=== PATIENT | male | born 1965 | race Caucasian/White ===

== ENCOUNTER 2023-03-27 16:13 | Emergency (ER) | payer BC ==
[2023-03-27] MEDS ORDERED: Sodium Chloride 0.9% 10 ML Syringe FLUSH PRN (16:45)
[2023-03-27 17:41] LABS: INR 1.07; PROTHROMBIN TIME 11.4 SECONDS (9.7-12.0)
[2023-03-27 17:42] LABS: PTT,PARTIAL THROMBOPLSTIN TIME 27.5 SECONDS (21.7-31.4)
[2023-03-27 18:22] LABS: A/G RATIO 0.6 (1-2); ALBUMIN 2.7 g/dl (3.4-5.0); BILIRUBIN TOTAL 19.7 mg/dL (0.2-1.0); BUN/CREATININE RATIO 27.8 (14-18); EST CRCL DRUG DOSING (CG) 85.5 mL/min
[2023-03-27 18:26] LABS: HEPATITIS C AB NEGATIVE (NEGATIVE)
[2023-03-27 18:30] LABS: ANION GAP 15.8 (5-15)
[2023-03-27 18:31] LABS: CREATININE 0.9 mg/dL (0.7-1.3); POTASSIUM,K 2.8 mEq/L (3.5-5.1); PROTEIN TOTAL,TP 7.1 g/dl (6.4-8.2)
[2023-03-27] MEDS ORDERED: Sodium Chloride 0.9% 1,000 ML IV SCH (19:45)
[2023-03-27] MEDS ORDERED: Iopamidol 612 MG/ML 100 ML Bottle IVPUSH ONE (19:48)
== END 2023-03-27 21:50 ==
LOC: JD.ED 16:13
DX: K83.1 Obstruction of bile duct (principal); R74.01 Elevation of levels of liver transaminase levels; R17 Unspecified jaundice; Z79.899 Other long term (current) drug therapy; Z88.0 Allergy status to penicillin
CPT/HCPCS: 36415; 74177; 76705; 80053; 82140; 82977; 85610; 85730; 86803; 99285; J3490; Q9967

== ENCOUNTER 2023-04-10 13:51 | Emergency (ER) | payer BC ==
[2023-04-10] MEDS ORDERED: Sodium Chloride 0.9% 10 ML Syringe FLUSH PRN (13:57)
[2023-04-10] MEDS ORDERED: Sodium Chloride 0.9% 1,000 ML IV STA (13:58)
[2023-04-10] MEDS ORDERED: HYDROmorphone 0.5 MG/0.5 ML Syringe IVPUSH ONE ×2 (14:10→17:09)
[2023-04-10 14:13] LABS: BASOPHILS PERCENT AUTO 0.2 % (0.0-1.0); HEMATOCRIT 29.6 % (42.0-52.0); HEMOGLOBIN 10.4 gm/dl (14.0-18.0); IMMATURE GRAN ABSOLUTE AUTO 0.07 K/mm3 (0.00-0.05); IMMATURE GRAN PERCENT AUTO 0.6 % (0.0-0.4); LYMPHOCYTES ABSOLUTE AUTO 0.2 K/mm3 (1.0-4.8); LYMPHOCYTES PERCENT AUTO 1.8 % (24.0-44.0); MEAN CORPUSCULAR HEMOGLOBIN 32.3 pg (28.0-32.0); MEAN CORPUSCULAR HGB CONC 35.1 g/dl (32.0-36.0); MEAN CORPUSCULAR VOLUME 91.9 fl (83.0-99.0); MEAN PLATELET VOLUME 9.2 fl (9.4-12.4); MONOCYTES ABSOLUTE AUTO 0.2 K/mm3 (0.0-0.8); MONOCYTES PERCENT AUTO 1.8 % (0.0-8.0); NEUTROPHILS PERCENT AUTO 95.6 % (41.0-71.0); PLATELET COUNT,PLT 407 K/mm3 (150-400); RED BLOOD CELL COUNT 3.22 M/mm3 (4.52-5.90)
[2023-04-10] MEDS ORDERED: Sodium Chloride 0.9% 10 ML Syringe FLUSH ONE (14:16)
[2023-04-10] MEDS ORDERED: Iopamidol 612 MG/ML 100 ML Bottle IVPUSH ONE (14:16)
[2023-04-10 14:38] LABS: A/G RATIO 0.8 (1-2); ALANINE AMINOTRANSFERASE,ALT 231 U/L (16-63); ALBUMIN 2.8 g/dl (3.4-5.0); ALKALINE PHOSPHATASE 449 U/L (46-116); ANION GAP 14.1 (5-15); ASPARTATE AMNIOTRANSFERASE,AST 204 U/L (15-37); BLOOD UREA NITROGEN,BUN 17 mg/dL (7-18); BUN/CREATININE RATIO 14.2 (14-18); C-REACTIVE PROTEIN 2.7 mg/dL (<1.0); CALCIUM 9.2 mg/dL (8.5-10.1); CARBON DIOXIDE,CO2 26 mEq/L (21-32); CHLORIDE,CL 102 mEq/L (98-107); ESTIMATED GFR 70 mL/min (>60); GLUCOSE RANDOM 148 mg/dL (70-99); LIPASE 130 U/L (73-393); POTASSIUM,K 3.1 mEq/L (3.5-5.1); SODIUM,NA 139 mEq/L (136-145)
[2023-04-10 14:43] LABS: CREATININE 1.2 mg/dL (0.7-1.3); PROTEIN TOTAL,TP 6.5 g/dl (6.4-8.2)
[2023-04-10 14:59] LABS: SLIDE REVIEW ABNORMAL SMEAR
[2023-04-10] MEDS ORDERED: metroNIDAZOLE/Normal Saline 500 MG in Premix Bag 1 BAG IV ONE (16:40)
[2023-04-10] MEDS ORDERED: Levofloxacin/Dextrose 5%-Water 750 MG in Premix Bag 1 BAG IV ONE (16:40)
== END 2023-04-10 19:10 ==
LOC: JD.ED 13:51
DX: K83.1 Obstruction of bile duct (principal); R74.01 Elevation of levels of liver transaminase levels; I10 Essential (primary) hypertension; Z88.0 Allergy status to penicillin; Z79.899 Other long term (current) drug therapy; Z87.891 Personal history of nicotine dependence; Z95.5 Presence of coronary angioplasty implant and graft
CPT/HCPCS: 36415; 74177; 80053; 83690; 85025; 86140; 96361; 96365; 96368; 96375; 96376; 99285; J1170; J1956; J3490; J7030; Q9967